=== PATIENT | male | born 1970 | race Caucasian/White ===

== ENCOUNTER → 2018-03-20 | Emergency (ER) | payer OTHER ==
[~2018-03-20] VITALS: Ht 152.4 cm; Wt 88.5 kg
[~2018-03-20] MED LIST: AMOXICILLIN500 MG PO; BACTRIM DS 8001 TA1 PO; CIPRO500 MG PO; DOXYCYCLINE HY100 M3 PO; FLEXERIL10 MG PO; KEFLEX500 MG PO; MOTRIN800 MG PO; NAPROSYN500 MG PO; Orphenadrine C100 MG PO; PHENERGAN W/ DE30 ML PO; VISTARIL50 MG PO
== END ==
LOC: ED 12:54
DX: S33.9XXA Sprain of unspecified parts of lumbar spine and pelvis, initial encounter (principal); F17.200 Nicotine dependence, unspecified, uncomplicated; X50.9XXA Other and unspecified overexertion or strenuous movements or postures, initial encounter; Y93.89 Activity, other specified; Y92.69 Other specified industrial and construction area as the place of occurrence of the external cause; Y99.8 Other external cause status

== ENCOUNTER 2019-09-05 17:32 | Emergency (ER) | payer OTHER ==
[~2019-09-05] VITALS: Ht 182.8 cm; Wt 90.7 kg
[2019-09-05] MEDS ORDERED: ROBAXIN-750750 MG PO (20:39)
[2019-09-05] MEDS ORDERED: PREDNISONE20 M1 PO (20:39)
== END 2019-09-05 20:47 | disposition home or self-care (01) ==
LOC: ED 17:32
DX: S33.5XXA Sprain of ligaments of lumbar spine, initial encounter (principal); Z79.899 Other long term (current) drug therapy; X50.9XXA Other and unspecified overexertion or strenuous movements or postures, initial encounter; Y93.89 Activity, other specified; Y92.89 Other specified places as the place of occurrence of the external cause; Y99.8 Other external cause status

== ENCOUNTER → 2021-12-15 | Outpatient (CLI) | payer SELFPAY ==
[~2021-12-15] MED LIST changes: +PREDNISONE20 M1 PO; +ROBAXIN-750750 MG PO
== END | disposition home or self-care (01) ==
LOC: RESCLI 08:12
PROVIDERS: ATTEND Family Medicine
DX: R07.81 Pleurodynia (principal)